=== PATIENT | female | born 1990 | race Caucasian/White ===

== ENCOUNTER 2023-06-07 15:51 | Emergency (ER) | payer OTHER ==
[2023-06-07 16:12] VITALS: RESP 18; BMI 33.0
[2023-06-07] MEDS ORDERED: ACETAMINOPHEN 1000 MG/100 ML BAG IVPB ONE (17:02)
[2023-06-07] MEDS ORDERED: SODIUM CHLORIDE 0.9% 500 ML INFUS.BAG IV ONE (17:02)
[2023-06-07] MEDS ORDERED: ACETAMINOPHEN INJECTION 100 ML IVPB ONE (17:10)
[2023-06-07] MEDS ORDERED: FAMOTIDINE 20 MG/50 ML IVPB 20 MG/50 ML MG IVPB ONE ×2 (18:04→18:22)
[2023-06-07] MEDS ORDERED: MAG HYDROX/AL HYDROX/SIMETH 30 ML UNIT-DOSE CUP PO ONE (18:04)
[2023-06-07 18:09] LABS: BASO % 0.3 % (0-2.0); EOS % 0.8 % (0-4.5); HEMATOCRIT 32.3 % (32.4-45.2); HEMOGLOBIN 11.2 GM/dL (10.7-15.3); LYMPH % 18.8 % (8-40); MCH 27.7 pg (25.7-33.7); MCHC 34.5 g/dl (32.0-36.0); MEAN CELL VOLUME 80.3 fl (80-96); MEAN PLT VOLUME 7.9 fl (7.5-11.1); MONO % 9.2 % (3.8-10.2); NEUT % 70.9 % (42.8-82.8); PLATELET COUNT 259 10^3/uL (134-434); RBC 4.02 M/mm3 (3.60-5.2); RDW 13.7 % (11.6-15.6); WHITE BLOOD COUNT 9.4 K/mm3 (4.0-10.0)
[2023-06-07] MEDS ORDERED: MAG HYDROX/AL HYDROX/SIMETH 30 ML UNIT-DOSE CUP ONE (18:21)
[2023-06-07 18:29] LABS: CALCIUM 8.3 mg/dL (8.5-10.1)
[2023-06-07 18:30] LABS: ALBUMIN 2.5 g/dl (3.4-5.0); BLOOD UREA NITROGEN 10.2 mg/dL (7-18)
[2023-06-07 18:33] LABS: CREATININE 0.7 mg/dL (0.55-1.3)
[2023-06-07 18:35] LABS: BILIRUBIN,TOTAL 0.2 mg/dL (0.2-1); TOT PROT 6.3 g/dl (6.4-8.2)
[2023-06-07 19:24] VITALS: BP 128/71; PULSE 89; TEMP 98.5
== END 2023-06-07 20:28 | disposition home or self-care (01) ==
LOC: JER 15:51
PROC: 3E033GC Introduction of Other Therapeutic Substance into Peripheral Vein, Percutaneous Approach (ICD-10-PCS; principal; 2023-06-07)
PROC: 3E033GC Introduction of Other Therapeutic Substance into Peripheral Vein, Percutaneous Approach (ICD-10-PCS; 2023-06-07)
DX: O99.513 Diseases of the respiratory system complicating pregnancy, third trimester (principal); R06.02 Shortness of breath; O99.891 Other specified diseases and conditions complicating pregnancy; R51.9 Headache, unspecified; Z3A.32 32 weeks gestation of pregnancy; Z20.822 Contact with and (suspected) exposure to COVID-19
CPT/HCPCS: 0241U-QW; 36415; 80053; 82550; 84484; 85025; 93005; 93010; 93308; 93970-TC; 99285-25

== ENCOUNTER 2023-07-16 16:10 | Inpatient (IN) | payer OTHER ==
[2023-07-16 17:11] VITALS: BMI 35.9
[2023-07-16] MEDS ORDERED: DINOPROSTONE 10 MG VAGINAL SUPPOSITORY VG ONE (17:30)
[2023-07-16] MEDS: ELECTROLYTE-148 SOLN 1,000 ML IV SCH ×2 (18:00→23:30)
[2023-07-16 18:07] LABS: BASO % 0.4 % (0-2.0); EOS % 0.7 % (0-4.5); HEMATOCRIT 32.8 % (32.4-45.2); HEMOGLOBIN 10.9 GM/dL (10.7-15.3); LYMPH % 18.8 % (8-40); MCH 26.7 pg (25.7-33.7); MCHC 33.2 g/dl (32.0-36.0); MEAN CELL VOLUME 80.4 fl (80-96); MEAN PLT VOLUME 8.3 fl (7.5-11.1); MONO % 8.7 % (3.8-10.2); NEUT % 71.4 % (42.8-82.8); PLATELET COUNT 276 10^3/uL (134-434); RBC 4.08 M/mm3 (3.60-5.2); RDW 14.1 % (11.6-15.6); WHITE BLOOD COUNT 8.7 K/mm3 (4.0-10.0)
[2023-07-16 18:13] LABS: RETICULOCYTES 1.17 % (0.5-1.5)
[2023-07-16 18:15] LABS: INR 0.97 (0.83-1.09); PROTHROMBIN TIME (PATIENT) 11.2 SEC (9.7-13.0)
[2023-07-16 18:18] LABS: ACTIVATED PTT 23.5 SECONDS (25.2-36.5)
[2023-07-16 18:22] LABS: POTASSIUM 3.9 mmol/L (3.5-5.1)
[2023-07-16 18:24] LABS: CALCIUM 8.8 mg/dL (8.5-10.1)
[2023-07-16 18:25] LABS: BLOOD UREA NITROGEN 11.5 mg/dL (7-18)
[2023-07-16 18:27] LABS: URIC ACID 4.7 mg/dL (2.6-7.2)
[2023-07-16 18:28] LABS: CREATININE 0.9 mg/dL (0.55-1.3)
[2023-07-16] MEDS ORDERED: PROMETHAZINE HCL 25 MG/1 ML VIAL IVPB ONE (21:34)
[2023-07-16] MEDS ORDERED: BUTORPHANOL TARTRATE 1 MG/ML VIAL IVPB ONE (21:34)
[2023-07-16] MEDS ORDERED: ZOLPIDEM TARTRATE 5 MG TABLET PO ONE (21:50)
[2023-07-16] MEDS ORDERED: AMPICILLIN - 2 GM in SODIUM CHLORIDE 100 ML IVPB ONE (21:50)
[2023-07-16] MEDS ORDERED: ZOLPIDEM TARTRATE 5 MG TABLET ONE (23:11)
[2023-07-16] MEDS ORDERED: MAG HYDROX/AL HYDROX/SIMETH 30 ML UNIT-DOSE CUP PO PRN (23:42)
[2023-07-17] MEDS ORDERED: AMPICILLIN - 1 GM in SODIUM CHLORIDE 100 ML IVPB SCH (02:00)
[2023-07-17] MEDS ORDERED: AMPICILLIN SODIUM 2 GM VIAL ONE (04:58)
[2023-07-17] MEDS ORDERED: AMPICILLIN - 2 GM in SODIUM CHLORIDE 100 ML IVPB ONE (05:00)
[2023-07-17] MEDS ORDERED: OXYTOCIN 30 UNITS in 0.9% NS 30 UNIT/500 ML INFUS.BAG IVPB SCH (06:00)
[2023-07-17] MEDS ORDERED: OXYTOCIN 30 UNITS in 0.9% NS 30 UNIT/500 ML INFUS.BAG IVPB ONE ×2 (06:19→19:13)
[2023-07-17] MEDS: ELECTROLYTE-148 SOLN 1,000 ML IV SCH ×2 (08:45→16:00)
[2023-07-17] MEDS: AMPICILLIN - 1 GM in SODIUM CHLORIDE 100 ML IVPB SCH ×4 (09:15→20:59)
[2023-07-17] MEDS ORDERED: AMPICILLIN SODIUM 1 GM VIAL ONE ×4 (09:27→20:49)
[2023-07-17] MEDS: LABETALOL HCL 200 MG TABLET (FP) PO SCH ×2 (10:00→23:02)
[2023-07-17] MEDS ORDERED: FENTANYL/BUPIVACAINE/NS/PF - PCEA - 50 ML DISP.SYRIN EP ONE ×2 (14:44→20:03)
[2023-07-17] MEDS ORDERED: FENTANYL CITRATE/PF 50 MCG/ML VIAL ONE (15:03)
[2023-07-17] MEDS: FENTANYL/BUPIVACAINE/NS/PF - PCEA - 50 ML DISP.SYRIN EP SCH (15:20)
[2023-07-17] MEDS ORDERED: NALOXONE HCL 0.4 MG/ML VIAL IVPUSH PRN (16:38)
[2023-07-17] MEDS ORDERED: ONDANSETRON 4 MG/2 ML VIAL IVPUSH PRN (21:10)
[2023-07-17] MEDS ORDERED: CITRIC ACID/SODIUM CITRATE 30 ML UNIT-DOSE CUP PO ONE (22:00)
[2023-07-17] MEDS ORDERED: ELECTROLYTE-148 SOLN 1,000 ML IV SCH ×2 (22:00→22:30)
[2023-07-17] MEDS ORDERED: LIDO 2%/EPI 1:200000 PRESRVFRE (20 ML SDVIAL) ONE (23:18)
[2023-07-18] MEDS ORDERED: OXYTOCIN 30 UNITS in 0.9% NS 30 UNIT/500 ML INFUS.BAG IVPB ONE (00:17)
[2023-07-18] MEDS ORDERED: ONDANSETRON 4 MG/2 ML VIAL ONE (00:18)
[2023-07-18] MEDS ORDERED: KETOROLAC TROMETHAMINE 30 MG/1 ML VIAL ONE (00:18)
[2023-07-18] MEDS ORDERED: ceFAZolin SODIUM 1 GM VIAL ONE (00:18)
[2023-07-18] MEDS ORDERED: DEXAMETHASONE SOD PHOSPHATE 4 MG/1 ML VIAL ONE (00:18)
[2023-07-18] MEDS ORDERED: morphine SULFATE/PF 1 MG/2 ML (2cc Syringe - QUVA) ONE (00:19)
[2023-07-18] MEDS ORDERED: ONDANSETRON 4 MG/2 ML VIAL IVPB PRN (02:10)
[2023-07-18] MEDS ORDERED: IBUPROFEN 800 MG/8 ML IJ IVPB PRN (02:10)
[2023-07-18] MEDS ORDERED: ACETAMINOPHEN 1000 MG/100 ML BAG IVPB PRN (02:10)
[2023-07-18] MEDS ORDERED: ACETAMINOPHEN 325 MG TABLET (FP) PO PRN (02:10)
[2023-07-18] MEDS: OXYTOCIN 20 UNITS in 0.9% NS 20 UNIT/1,000 ML INFUS.BAG IV SCH ×2 (02:30→09:45)
[2023-07-18] MEDS: CEFAZOLIN 1 GM in DEXTROSE 5%-WATER - 50 ML IVPB SCH ×2 (09:46→16:10)
[2023-07-18] MEDS: PRENATAL VITAMINS W/ FOLIC ACID TABLET (FP) PO SCH (09:52)
[2023-07-18] MEDS: LABETALOL HCL 200 MG TABLET (FP) PO SCH ×2 (10:05→23:34)
[2023-07-18] MEDS: SIMETHICONE 80 MG TAB.CHEW (FP) PO PRN ×2 (17:14→21:15)
[2023-07-18] MEDS: FENTANYL/BUPIVACAINE/NS/PF - PCEA - 50 ML DISP.SYRIN EP SCH (18:21)
[2023-07-18] MEDS: ELECTROLYTE-148 SOLN 1,000 ML IV SCH (18:22)
[2023-07-18] MEDS: AMPICILLIN - 1 GM in SODIUM CHLORIDE 100 ML IVPB SCH (18:24)
[2023-07-18] MEDS: IBUPROFEN 600 MG TABLET (FP) PO PRN (20:56)
[2023-07-18] MEDS: SENNOSIDES/DOCUSATE COMBO (SENNA PLUS) TABLET (UD) PO PRN (20:57)
[2023-07-19] MEDS: SIMETHICONE 80 MG TAB.CHEW (FP) PO PRN (01:57)
[2023-07-19] MEDS: IBUPROFEN 600 MG TABLET (FP) PO PRN ×3 (01:57→13:08)
[2023-07-19] MEDS ORDERED: BISACODYL 10 MG SUPP.RECT RC PRN (02:10)
[2023-07-19 08:41] LABS: BASO % 0.6 % (0-2.0); EOS % 1.2 % (0-4.5); HEMATOCRIT 27.8 % (32.4-45.2); HEMOGLOBIN 9.3 GM/dL (10.7-15.3); LYMPH % 21.3 % (8-40); MCH 26.8 pg (25.7-33.7); MCHC 33.5 g/dl (32.0-36.0); MEAN CELL VOLUME 80.2 fl (80-96); MEAN PLT VOLUME 8.1 fl (7.5-11.1); MONO % 9.2 % (3.8-10.2); NEUT % 67.7 % (42.8-82.8); PLATELET COUNT 231 10^3/uL (134-434); RBC 3.47 M/mm3 (3.60-5.2); RDW 14.4 % (11.6-15.6); WHITE BLOOD COUNT 8.1 K/mm3 (4.0-10.0)
[2023-07-19] MEDS: PRENATAL VITAMINS W/ FOLIC ACID TABLET (FP) PO SCH (09:38)
[2023-07-19] MEDS: LABETALOL HCL 200 MG TABLET (FP) PO SCH ×2 (09:50→22:43)
[2023-07-19] MEDS: FERROUS SO4 325 MG TABLET (FP) PO SCH ×2 (13:06→21:45)
[2023-07-19] MEDS: ASCORBIC ACID 500 MG TABLET (FP) PO SCH (13:27)
[2023-07-19] MEDS: ELECTROLYTE-148 SOLN 1,000 ML IV SCH (17:57)
[2023-07-19] MEDS: FENTANYL/BUPIVACAINE/NS/PF - PCEA - 50 ML DISP.SYRIN EP SCH (17:58)
[2023-07-19] MEDS: SENNOSIDES/DOCUSATE COMBO (SENNA PLUS) TABLET (UD) PO PRN (21:46)
[2023-07-19] MEDS: oxyCODONE HCL 5 MG TABLET PO PRN (21:46)
[2023-07-20] MEDS: IBUPROFEN 600 MG TABLET (FP) PO PRN (05:28)
[2023-07-20] MEDS: FERROUS SO4 325 MG TABLET (FP) PO SCH ×2 (05:28→13:13)
[2023-07-20] MEDS: oxyCODONE HCL 5 MG TABLET PO PRN (10:05)
[2023-07-20] MEDS: PRENATAL VITAMINS W/ FOLIC ACID TABLET (FP) PO SCH (10:05)
[2023-07-20] MEDS: LABETALOL HCL 200 MG TABLET (FP) PO SCH (10:05)
[2023-07-20 11:11] VITALS: BP 133/76; PULSE 70; RESP 16; TEMP 97.8
[2023-07-20] MEDS: ASCORBIC ACID 500 MG TABLET (FP) PO SCH (13:13)
== END 2023-07-20 15:05 | disposition home or self-care (01) | DRG 540 ==
LOC: JLDR 16:10 → J3W 07-18 03:27
PROVIDERS: ADMIT Obstetrics & Gynecology; ATTEND Specialist
PROC: 3E0P7VZ Introduction of Hormone into Female Reproductive, Via Natural or Artificial Opening (ICD-10-PCS; 2023-07-16)
PROC: 10D00Z1 Extraction of Products of Conception, Low, Open Approach (ICD-10-PCS; principal; 2023-07-18)
DX: O13.4 Gestational [pregnancy-induced] hypertension without significant proteinuria, complicating childbirth (principal); O62.9 Abnormality of forces of labor, unspecified; O69.1XX0 Labor and delivery complicated by cord around neck, with compression, not applicable or unspecified; O99.824 Streptococcus B carrier state complicating childbirth; Z3A.38 38 weeks gestation of pregnancy; Z37.0 Single live birth
CPT/HCPCS: 36415; 80048; 82977; 84450; 84460; 84550; 85025; 85045; 85610; 85730; 86780; 86850; 86900; 86901; 88307-TC; 94010